=== PATIENT | female | born 1945 | race Caucasian/White ===

== ENCOUNTER 2018-08-07 19:47 | Emergency (ER) | payer MEDICARE, BC ==
[~2018-08-07] VITALS: Ht 167.6 cm; Wt 80.6 kg
[~2018-08-07 19:47] MED LIST: AUGMENTIN875TAB PO; FLONASE0.05 %; LEVOTHYROXIN PO; SINGULAIR PO
[2018-08-07] MEDS ORDERED: SYNTHROID25 MCG PO (20:01)
[2018-08-07 20:34] LABS: URINE BILIRUBIN - DIPSTICK SMALL (NEGATIVE); URINE BLOOD DIPSTICK LARGE (NEGATIVE); URINE COLOR BROWN; URINE GLUCOSE - DIPSTICK NEGATIVE (NEGATIVE); URINE KETONE TRACE mg/dL (NEGATIVE); URINE LEUK ESTERASE MODERATE (NEGATIVE); URINE NITRITE - DIPSTICK POSITIVE (Negative); URINE PROTEIN - DIPSTICK 100 mg/dL (NEG-TRACE); URINE SPECIFIC GRAVITY >=1.030
[2018-08-07 20:36] LABS: URINE BACTERIA FEW hpf; URINE RBC TNTC RBC/hpf (0-5); URINE SQUAMOUS EPITHELIAL CELL FEW EPI/hpf (0-FEW)
[2018-08-07] MEDS ORDERED: KEFLEX500 M1 PO (20:49)
[2018-08-07] MEDS ORDERED: PYRIDIUM200 MG PO (20:49)
[2018-08-07 21:00] VITALS: BP 147/68
== END 2018-08-07 21:00 | disposition home or self-care (01) ==
LOC: ED 19:47
DX: N39.0 Urinary tract infection, site not specified (principal); J45.909 Unspecified asthma, uncomplicated; E03.9 Hypothyroidism, unspecified; B96.20 Unspecified Escherichia coli [E. coli] as the cause of diseases classified elsewhere; Z87.440 Personal history of urinary (tract) infections

== ENCOUNTER 2019-06-12 09:16 | Emergency (ER) | payer MEDICARE, BC ==
[~2019-06-12] VITALS: Ht 167.6 cm; Wt 81.0 kg
[~2019-06-12 09:16] MED LIST changes: +KEFLEX500 M1 PO; +PYRIDIUM200 MG PO; +SYNTHROID25 MCG PO
[2019-06-12] MEDS ORDERED: PROVENTIL0.083 % IN (09:41)
[2019-06-12] MEDS ORDERED: ZPAK PO (09:41)
[2019-06-12 10:05] VITALS: BP 152/78
== END 2019-06-12 10:18 | disposition home or self-care (01) ==
LOC: ED 09:16
DX: J06.9 Acute upper respiratory infection, unspecified (principal); E03.9 Hypothyroidism, unspecified; J45.909 Unspecified asthma, uncomplicated